=== PATIENT | male | born 1955 | race Caucasian/White ===

== ENCOUNTER 2021-03-15 19:23 | Inpatient (IN) | payer MEDICARE, MEDICAID ==
[~2021-03-15] VITALS: Ht 182.9 cm; Wt 65.5 kg
[2021-03-15 20:34] LABS: HEMOGLOBIN 7.7 gm/dl (14.0-17.5); RED BLOOD COUNT 4.43 M/UL (4.20-5.50); WHITE BLOOD COUNT 6.7 K/UL (4.5-11.0)
[2021-03-15 20:53] LABS: BUN/CREATININE RATIO 16 (0-10)
[2021-03-16 00:43] LABS: BUN/CREATININE RATIO 17 (0-10)
[2021-03-16 11:20] LABS: BUN/CREATININE RATIO 13 (0-10)
[2021-03-16 15:42] LABS: BUN/CREATININE RATIO 12 (0-10)
[2021-03-17 02:34] LABS: HEMOGLOBIN 7.1 gm/dl (14.0-17.5)
[2021-03-17 02:40] LABS: WHITE BLOOD COUNT 4.9 K/UL (4.5-11.0)
[2021-03-17 03:14] LABS: BUN/CREATININE RATIO 12 (0-10)
[2021-03-18 09:19] LABS: HEMOGLOBIN 7.3 gm/dl (14.0-17.5); RED BLOOD COUNT 4.13 M/UL (4.20-5.50)
[2021-03-18 09:20] LABS: WHITE BLOOD COUNT 11.6 K/UL (4.5-11.0)
[2021-03-18 09:35] LABS: BUN/CREATININE RATIO 12 (0-10)
[2021-03-19 09:35] LABS: HEMOGLOBIN 7.9 gm/dl (14.0-17.5); RED BLOOD COUNT 4.21 M/UL (4.20-5.50)
[2021-03-19 09:36] LABS: WHITE BLOOD COUNT 5.1 K/UL (4.5-11.0)
[2021-03-19 10:08] LABS: BUN/CREATININE RATIO 19 (0-10)
[2021-03-19] MEDS ORDERED: FERROUS SULFAT325 M2 PO (17:07)
[2021-03-19] MEDS ORDERED: CARVEDILOL12.5 MG PO (17:07)
[2021-03-19] MEDS ORDERED: TYLENOL325 MG PO (17:09)
[2021-03-20 04:07] LABS: HEMOGLOBIN 7.4 gm/dl (14.0-17.5); RED BLOOD COUNT 4.01 M/UL (4.20-5.50)
[2021-03-20 04:47] LABS: BUN/CREATININE RATIO 21 (0-10)
[2021-03-21 07:57] LABS: HEMOGLOBIN 7.6 gm/dl (14.0-17.5); RED BLOOD COUNT 4.31 M/UL (4.20-5.50); WHITE BLOOD COUNT 5.3 K/UL (4.5-11.0)
[2021-03-21 08:17] LABS: BUN/CREATININE RATIO 14 (0-10)
[2021-03-22 04:09] LABS: HEMOGLOBIN 7.9 gm/dl (14.0-17.5); RED BLOOD COUNT 4.21 M/UL (4.20-5.50)
[2021-03-22 04:10] LABS: WHITE BLOOD COUNT 8.9 K/UL (4.5-11.0)
[2021-03-22 05:33] LABS: BUN/CREATININE RATIO 16 (0-10)
[2021-03-22 12:03] LABS: BUN/CREATININE RATIO 14 (0-10)
[2021-03-23 06:23] LABS: RED BLOOD COUNT 4.29 M/UL (4.20-5.50); WHITE BLOOD COUNT 7.1 K/UL (4.5-11.0)
[2021-03-23 06:43] LABS: BUN/CREATININE RATIO 13 (0-10)
[2021-03-24 04:09] LABS: HEMOGLOBIN 7.3 gm/dl (14.0-17.5); RED BLOOD COUNT 3.93 M/UL (4.20-5.50); WHITE BLOOD COUNT 6.9 K/UL (4.5-11.0)
[2021-03-24 04:35] LABS: BUN/CREATININE RATIO 15 (0-10)
[2021-03-25 04:57] LABS: HEMOGLOBIN 7.6 gm/dl (14.0-17.5); RED BLOOD COUNT 3.99 M/UL (4.20-5.50); WHITE BLOOD COUNT 8.1 K/UL (4.5-11.0)
[2021-03-25 05:23] LABS: BUN/CREATININE RATIO 12 (0-10)
--- NOTE | 2021-03-25 14:56 | NUR ---
REPORTED SUPERFICIAL BLOOD CLOT DISCOVERED ON US IN PATIENTS LEFT LEG TO DR. SAVAGE. ORDERS TO START PATIENT ON ELIQUIS 5MG BID.
[2021-03-26 03:04] LABS: HEMOGLOBIN 7.7 gm/dl (14.0-17.5); RED BLOOD COUNT 4.1 M/UL (4.20-5.50); WHITE BLOOD COUNT 9.7 K/UL (4.5-11.0)
[2021-03-26 03:27] LABS: BUN/CREATININE RATIO 16 (0-10)
[2021-03-27 06:47] LABS: HEMOGLOBIN 8.5 gm/dl (14.0-17.5)
[2021-03-27 06:54] LABS: RED BLOOD COUNT 4.55 M/UL (4.20-5.50); WHITE BLOOD COUNT 12.7 K/UL (4.5-11.0)
[2021-03-27 07:24] LABS: BUN/CREATININE RATIO 17 (0-10)
[2021-03-28 06:22] LABS: BUN/CREATININE RATIO 14 (0-10)
[2021-03-28] MEDS ORDERED: HYDROCODON-ACE1 EAC4 PO (09:37)
[2021-03-28] MEDS ORDERED: SODIUM CHLORIDE1 G1 PO (09:37)
[2021-03-28] MEDS ORDERED: FERROUS SULFAT325 MG PO (09:37)
[2021-03-28] MEDS ORDERED: ELIQUIS 5 MG TAB5 MG PO (09:48)
[2021-03-28] MEDS ORDERED: PROTONIX 40 MG40 M1 PO (09:48)
--- NOTE | 2021-03-28 10:40 | NUR ---
patient's sister raised concerns about patient having diarrhea. notified dr. santos. new orders to obtain stool for cdiff sample if patient has another bowel movement within the next few hours. if no sample is produced, we will use imodium if needed and re-evaluate patient's discharge order.
--- NOTE | 2021-03-28 14:35 | NUR ---
PATIENT HAS HAD NO BOWEL MOVEMENTS SINCE THIS AM. DISCUSSED WITH DR. SAVAGE. INSTRUCTED TO CONTINUE WITH DISCHARGE. NO CAUSE FOR IMODIUM TO BE ADMINISTERED AT THIS TIME.
== END 2021-03-28 17:06 | disposition home health service (06) | DRG 329 ==
LOC: ER1 19:23 → M/S 22:45 → CDU 22:45 → PROG CARE 22:45 → M/S 03-20 15:09
PROVIDERS: Internal Medicine; Internal Medicine Infectious Disease; Physician Assistant Medical; Surgery; ADMIT Internal Medicine
PROC: B24BZZ4 Ultrasonography of Heart with Aorta, Transesophageal (ICD-10-PCS; 2021-03-16)
PROC: 0DC80ZZ Extirpation of Matter from Small Intestine, Open Approach (ICD-10-PCS; 2021-03-17)
PROC: 0DB80ZZ Excision of Small Intestine, Open Approach (ICD-10-PCS; principal; 2021-03-17 09:45)
PROC: 30233N1 Transfusion of Nonautologous Red Blood Cells into Peripheral Vein, Percutaneous Approach (ICD-10-PCS; 2021-03-18)
DX: T18.3XXA Foreign body in small intestine, initial encounter (principal); I21.A1 Myocardial infarction type 2; K56.3 Gallstone ileus; Z20.822 Contact with and (suspected) exposure to COVID-19; E87.1 Hypo-osmolality and hyponatremia; I82.402 Acute embolism and thrombosis of unspecified deep veins of left lower extremity; K86.1 Other chronic pancreatitis; E44.0 Moderate protein-calorie malnutrition; Z68.1 Body mass index [BMI] 19.9 or less, adult; I25.10 Atherosclerotic heart disease of native coronary artery without angina pectoris; E87.6 Hypokalemia; I08.3 Combined rheumatic disorders of mitral, aortic and tricuspid valves; I27.20 Pulmonary hypertension, unspecified; E86.1 Hypovolemia; D50.9 Iron deficiency anemia, unspecified; E83.42 Hypomagnesemia; I48.91 Unspecified atrial fibrillation; R53.81 Other malaise; I08.1 Rheumatic disorders of both mitral and tricuspid valves; F17.210 Nicotine dependence, cigarettes, uncomplicated; Z83.3 Family history of diabetes mellitus; Z79.01 Long term (current) use of anticoagulants; I25.2 Old myocardial infarction
CPT/HCPCS: ECHO; 36415; 43752; 73560; 74018; 80048; 80053; 80307; 82436; 82533; 82550; 82553; 82607; 82746; 83540; 83690; 83735; 83880; 83930; 83935; 84100; 84132; 84133; 84295; 84300; 84443; 84484; 84550; 85018; 85025; 85027; 85045; 85652; 86140; 86850; 86900; 86901; 86920; 87040; 93005; 93306; 93971; 97110-GP-CQ; 97116; 97116-GP-CQ; 97161; 97166; 97530; 97530-GP-CQ; 97535; 99285; C1751; C9113; G0480; J0690; J1100; J1170; J1756; J2001; J2250; J2270; J2370; J2405; J2704; J3010; J3475; J7030; J7050; J7120; P9016; Q9967; U0002

== ENCOUNTER 2021-03-28 19:05 | Inpatient (IN) | payer MEDICARE ==
[~2021-03-28] VITALS: Ht 182.9 cm; Wt 65.8 kg
[~2021-03-28 19:05] MED LIST: CARVEDILOL12.5 MG PO; ELIQUIS 5 MG TAB5 MG PO; FERROUS SULFAT325 M2 PO; FERROUS SULFAT325 MG PO; HYDROCODON-ACE1 EAC4 PO; PROTONIX 40 MG40 M1 PO; SODIUM CHLORIDE1 G1 PO; TYLENOL325 MG PO
[2021-03-28 20:35] LABS: HEMOGLOBIN 8.1 gm/dl (14.0-17.5); RED BLOOD COUNT 4.22 M/UL (4.20-5.50); WHITE BLOOD COUNT 11.8 K/UL (4.5-11.0)
[2021-03-28 20:46] LABS: BUN/CREATININE RATIO 16 (0-10)
[2021-03-29 00:44] LABS: BUN/CREATININE RATIO 14 (0-10)
[2021-03-29 09:31] LABS: BUN/CREATININE RATIO 12 (0-10)
[2021-03-30 09:04] LABS: HEMOGLOBIN 7.6 gm/dl (14.0-17.5); RED BLOOD COUNT 4.19 M/UL (4.20-5.50); WHITE BLOOD COUNT 9.3 K/UL (4.5-11.0)
[2021-03-30 09:34] LABS: BUN/CREATININE RATIO 13 (0-10)
[2021-03-31 03:14] LABS: HEMOGLOBIN 7.2 gm/dl (14.0-17.5); RED BLOOD COUNT 3.8 M/UL (4.20-5.50); WHITE BLOOD COUNT 7.6 K/UL (4.5-11.0)
[2021-03-31 03:27] LABS: BUN/CREATININE RATIO 14 (0-10)
--- NOTE | 2021-03-31 20:16 | NUR ---
ATTEMPTED TO CONTACT SISTER DEJAH AT [phone] LEFT A MESSAGE AND AM AWITING RETURN CALL SO THAT CONSENT MAY BE OBTAINED FOR BLOOD ADMINISTRATION.
[2021-04-01 07:32] LABS: HEMOGLOBIN 7.8 gm/dl (14.0-17.5); RED BLOOD COUNT 4.1 M/UL (4.20-5.50); WHITE BLOOD COUNT 6.4 K/UL (4.5-11.0)
[2021-04-01 07:58] LABS: BUN/CREATININE RATIO 14 (0-10)
[2021-04-02 07:16] LABS: HEMOGLOBIN 8.2 gm/dl (14.0-17.5); RED BLOOD COUNT 4.18 M/UL (4.20-5.50); WHITE BLOOD COUNT 5.1 K/UL (4.5-11.0)
[2021-04-02 07:38] LABS: BUN/CREATININE RATIO 16 (0-10)
[2021-04-03 06:26] LABS: HEMOGLOBIN 8.7 gm/dl (14.0-17.5); RED BLOOD COUNT 4.44 M/UL (4.20-5.50); WHITE BLOOD COUNT 5.2 K/UL (4.5-11.0)
[2021-04-03 08:05] LABS: BUN/CREATININE RATIO 16 (0-10)
[2021-04-04 06:55] LABS: HEMOGLOBIN 9.3 gm/dl (14.0-17.5); RED BLOOD COUNT 4.63 M/UL (4.20-5.50); WHITE BLOOD COUNT 5.9 K/UL (4.5-11.0)
[2021-04-04 07:14] LABS: BUN/CREATININE RATIO 16 (0-10)
[2021-04-06 07:14] LABS: HEMOGLOBIN 8.6 gm/dl (14.0-17.5); RED BLOOD COUNT 4.22 M/UL (4.20-5.50); WHITE BLOOD COUNT 4.8 K/UL (4.5-11.0)
[2021-04-06 07:43] LABS: BUN/CREATININE RATIO 12 (0-10)
[2021-04-07 07:05] LABS: HEMOGLOBIN 8.9 gm/dl (14.0-17.5); RED BLOOD COUNT 4.38 M/UL (4.20-5.50); WHITE BLOOD COUNT 4.9 K/UL (4.5-11.0)
[2021-04-07 09:34] LABS: BUN/CREATININE RATIO 14 (0-10)
[2021-04-07 16:06] LABS: BUN/CREATININE RATIO 15 (0-10)
[2021-04-08 06:57] LABS: HEMOGLOBIN 9.1 gm/dl (14.0-17.5); RED BLOOD COUNT 4.42 M/UL (4.20-5.50); WHITE BLOOD COUNT 4.7 K/UL (4.5-11.0)
[2021-04-08 07:14] LABS: BUN/CREATININE RATIO 16 (0-10)
[2021-04-08] MEDS ORDERED: SODIUM CHLORIDE1 G1 PO (10:23)
[2021-04-08] MEDS ORDERED: KEPPRA 250 MG250 MG PO (10:23)
[2021-04-08] MEDS ORDERED: ATORVASTATIN CA20 MG PO (10:23)
[2021-04-08] MEDS ORDERED: ASPIRIN EC81 MG PO (10:28)
== END 2021-04-08 14:31 | DRG 101 ==
LOC: ER1 19:05 → CDU 03-29 02:09 → M/S 03-29 02:09 → CDU 03-29 02:09 → M/S 03-29 14:05
PROVIDERS: Internal Medicine; Physician Assistant Medical; Student in an Organized Health Care Education/Training Program; ADMIT Internal Medicine
PROC: 30233N1 Transfusion of Nonautologous Red Blood Cells into Peripheral Vein, Percutaneous Approach (ICD-10-PCS; principal; 2021-03-31)
PROC: 4A00X4Z Measurement of Central Nervous Electrical Activity, External Approach (ICD-10-PCS; 2021-03-31)
DX: G40.909 Epilepsy, unspecified, not intractable, without status epilepticus (principal); E22.2 Syndrome of inappropriate secretion of antidiuretic hormone; T81.49XA Infection following a procedure, other surgical site, initial encounter; I82.4Z2 Acute embolism and thrombosis of unspecified deep veins of left distal lower extremity; K86.1 Other chronic pancreatitis; B96.20 Unspecified Escherichia coli [E. coli] as the cause of diseases classified elsewhere; I48.0 Paroxysmal atrial fibrillation; D50.9 Iron deficiency anemia, unspecified; F10.10 Alcohol abuse, uncomplicated; E87.6 Hypokalemia; I10 Essential (primary) hypertension; R53.81 Other malaise; E83.42 Hypomagnesemia; Z90.49 Acquired absence of other specified parts of digestive tract; Z79.01 Long term (current) use of anticoagulants; Z79.82 Long term (current) use of aspirin; Z83.3 Family history of diabetes mellitus; Z86.73 Personal history of transient ischemic attack (TIA), and cerebral infarction without residual deficits
CPT/HCPCS: 36415; 36430; 70450; 70496; 70498; 70551; 71045; 80048; 80053; 82140; 82550; 82553; 83735; 83874; 83935; 84439; 84443; 84484; 85025; 85027; 86850; 86900; 86901; 86920; 87070; 87077; 87186; 87205; 93005; 95819; 96374; 96376; 97110; 97110-GP-CQ; 97116; 97116-GP-CQ; 97161; 97166; 97530-GP-CQ; 99285; C1751; G0378; J1953; J7030; P9016; Q9967; U0002